=== PATIENT | female | born 1960 | race Caucasian/White ===

== ENCOUNTER 2021-03-01 08:16 | Inpatient (IN) | payer BC, SELFPAY ==
[2021-03-01] VITALS (30 sets, daily range): BP systolic 105–146; BP diastolic 71–97; PULSE 93–123; RESP 20–39; TEMP 36.2–37.4; O2SAT 84–94; BMI 35.9
--- NOTE | ~2021-03-01 | XR_ITS ---
EXAMINATION: XR chest 1V portable DATE: 03/04/2021 05:56 INDICATION: Shortness of breath TECHNIQUE: frontal view of the chest was obtained. COMPARISON: Chest radiograph dated 03/01/2021 FINDINGS: Again seen are increased interstitial predominant opacities in the bilateral mid and lower lung zones . No pleural effusion or pneumothorax. The cardiomediastinal silhouette is normal. Visualized bones and soft tissues are unremarkable. IMPRESSION: 1. Persistent opacities in the bilateral mid and lower lung zones which could represent pneumonia and /or pulmonary edema. Reviewed, dictated and finalized at location A. IMPRESSION: 1. Persistent opacities in the bilateral mid and lower lung zones which could r epresent pneumonia and/or pulmonary edema.
--- NOTE | ~2021-03-01 | XR_ITS ---
EXAMINATION: XR chest 1V portable DATE: 03/01/2021 08:45 INDICATION: Shortness of breath. TECHNIQUE: A single frontal view of the chest was obtained. COMPARISON: Chest 2 views 04/09/2015 FINDINGS: There are airspace opacities in the mid and lower lung zones. No pleural effusion or pneumo thorax. The heart size is normal. IMPRESSION: 1. Airspace opacities in the mid and lower lung zones, consistent with pneumonia. Reviewed, dictated and finalized at location A. IMPRESSION: 1. Airspace opacities in the mid and lower lung zones, consistent with pneumoni a.
--- NOTE | ~2021-03-01 | CT_ITS ---
EXAMINATION: CT chest high resolution wo nd DATE: 03/04/2021 10:45 INDICATION: Pneumonia, hypoxia TECHNIQUE: Computed tomography (CT) of the chest was performed without intravenous contrast. The dose -length product (DLP) was 739.09 mGy-cm. Automated exposure control and iterative reconstruction tech nique were employed. COMPARISON: None FINDINGS: There are widespread groundglass and airspace opacities with a mid and lower lung zone pred ominance. No pleural effusion or pneumothorax is identified. No pathologically enlarged thoracic lymp h nodes are identified. The heart size is normal. Calcified pulmonary nodules and calcified bilateral hilar lymph nodes are consistent with old granulomatous disease. There is moderate thoracic spondylo sis. IMPRESSION: 1. . Diffuse lung disease with a mid and lower lung zone predominance, in a pattern consistent with C OVID 19 pneumonia. Reviewed, dictated and finalized at location A. IMPRESSION: 1. . Diffuse lung disease with a mid and lower lung zone predominance, in a pat tern consistent with COVID 19 pneumonia.
--- NOTE | ~2021-03-01 | XR_ITS ---
EXAMINATION: XR chest 1V portable DATE: 03/06/2021 06:11 INDICATION: COVID TECHNIQUE: frontal view of the chest was obtained. COMPARISON: Chest radiograph and CT dated 03/04/2021 and radiograph dated 03/01/2021 FINDINGS: Lung volumes have decreased. Persistent coarse interstitial and scattered patchy airspace opacities t hroughout both lungs. No pneumothorax or definitive pleural effusion. Calcified right hilar lymph nod es consistent with old granulomatous disease. Heart size is normal. IMPRESSION: 1. Interval decrease in lung volumes with persistent diffuse bilateral lung disease most likely relat ed to pneumonia and specifically COVID pneumonia with differential including pulmonary edema. Reviewed, dictated and finalized at location A. IMPRESSION: 1. Interval decrease in lung volumes with persistent diffuse bilateral lung dis ease most likely related to pneumonia and specifically COVID pneumonia with dif ferential including pulmonary edema.
--- NOTE | 2021-03-01 08:22 | ECG_ITS ---
Measurements Intervals [place] Rate: 93 P: 41 TN: 132 QRS: -17 QRSD: 87 T: 29 QT: 296 QTc: 369 Interpretive Statements SINUS TACHYCARDIA BASELINE ARTIFACT- I, II, III, AVR, AVL, AVF, V1-V6 ABNORMAL ECG Electronically Signed On 03-01-2021 8:35:25 CDT by Nate Kellogg D.O.
[2021-03-01 08:46] LABS: Alveolar/Arterial O2 Gradient 613.2 mmHg; Base Excess ABG -2.8 mEq/l (+/-2.0); Fractional Inspired Oxygen 100 %; HCO3 ABG 22.1 mEq/l (22.0-26.0); Oxygen Content ABG 16.3 %vol (16.0-22.0); Oxyhemoglobin 89.4 % THb (90.0-100.0); PCO2 ABG 38.7 mmHg (35.0-45.0); PO2 ABG 61.1 mmHg (80.0-100.0); PO2 FiO2 Ratio Arterial Blood 0.61 %; pH ABG 7.374 (7.350-7.450)
[2021-03-01 08:47] LABS: Device NON-REBREATHER MASK; Modified Allen's Test Pass; Site Drawn LEFT RADIAL
[2021-03-01 08:58] LABS: Basophils Percent Auto 0.2 % (0.2-1.2); Hemoglobin 12.5 g/dL (12.0-15.0); Immature Granulocyte Absolute 0.07 K/mm3 (0.00-0.031); Immature Granulocyte Percent A 1.3 % (0-0.5); Lymphocytes Absolute Auto 1.18 K/mm3 (0.9-3.2); Lymphocytes Percent Auto 22.5 % (18.3-44.2); Mean Corpuscular HGB Conc 31.3 g/dl (32-36); Mean Corpuscular Hemoglobin 26.1 pg (26-34); Mean Corpuscular Volume 83.5 fl (80-100); Mean Platelet Volume 9.3 fl (7.4-10.4); Monocytes Absolute Auto 0.4 K/mm3 (0.1-0.6); Neutrophils Absolute Auto 3.6 K/mm3 (1.3-6.7); Platelet Count Result 220 k/mm3 (150-375); Red Blood Count 4.79 M/mm3 (4.2-5.4); Red Cell Distribution Width 15.9 % (11.5-14.5); White Blood Count 5.2 K/mm3 (4.5-10.0)
[2021-03-01 09:28] LABS: Prothrombin Time 12.7 Seconds (11.1-14.7)
[2021-03-01 09:31] LABS: D Dimer 2.43 ug/mL (<0.48)
--- NOTE | 2021-03-01 09:31 | ED.GENADULT ---
HPI - General Adult General Chief complaint: Shortness of Breath/Dyspnea Stated complaint: sob, covid + Time Seen by Provider: 03/01/21 08:22 Source: patient and RN notes reviewed Limitations: no limitations History of Present Illness HPI narrative: Patient is 60 years old white female presented to the ED with increasing shortness of breath over the last few days. Tested positive for COVID-19 ,7 days ago, had Covid symptoms few days prior to that. Patient is not vaccinated for COVID-19. Patient is a smoker, history of hypertension, asthma/COPD, and GERD. Related Data Allergies Allergy/AdvReac Type Severity Reaction Status Date / Time iodine Allergy Unknown Hives Verified 03/01/21 08:25 sulfamethizole Allergy Unknown Unknown Verified 03/01/21 08:25 trimethoprim Allergy Unknown Unknown Verified 03/01/21 08:25 Contrast Media Allergy Mild Hives Uncoded 03/01/21 08:25 Review of Systems Review of Systems: CONSTITUTIONAL: Intermittent fever, chills, body aches EYES: Denies visual changes, redness, or discharge. ENT: Denies rhinorrhea, congestion, sore throat, or otalgia. CARDIOVASCULAR: Denies chest pain, palpitations, or edema. RESPIRATORY: Coughing and shortness of breath GASTROINTESTINAL: Denies abdominal pain, nausea, vomiting, or diarrhea. GENITOURINARY: Denies dysuria or hematuria. SKIN: Denies rash or itching. MUSCULOSKELETAL: Denies back pain, joint pain, or myalgia. NEUROLOGIC: Denies headache, numbness PSYCHIATRIC: Denies anxiety or depression. PMFSH Past Medical History Medical History BMI 36.0-36.9,adult BMI 37.0-37.9, adult Family History Family History Mother Hypertension Family history of diabetes mellitus in first degree relative Family history of coronary artery disease Social History Social History Smoking status: Light tobacco smoker Tobacco type: e-cigarettes/vaping Second hand tobacco smoke exposure: No Alcohol intake: never Substance use: never Substance use type: does not use Exam Narrative: General appearance: Well-developed, well-nourished Skin: Normal color Head: Normocephalic, nontraumatic Eyes: Clear conjunctiva ENT: Oropharynx normal, ears normal, nose normal Neck: Supple, nontender Chest and respiratory: Airway patent, no respiratory distress, diminished air entry bilaterally mainly at the bases, few scattered rales. Heart: Regular rate/rhythm Abdomen: Soft, nontender, no organomegaly, quiet bowel sounds Vascular: Normal peripheral pulses, normal capillary refill. Musculoskeletal: Normal range of motion, nontender back Neurologic: Alert and oriented ?3, CHILD CARE ASSOCIATE is normal as tested, no gross motor deficit Course Course Emergency Course: Stable Consultations Consultation #1: dr jara. Date: 03/01/21 Time: 10:41 Vital Signs Vital signs: Vital Signs Temperature 37.4 C 03/01/21 08:18 Pulse Rate 123 H 03/01/21 08:18 Respiratory Rate 23 H 03/01/21 08:18 Blood Pressure 140/76 03/01/21 08:18 Pulse Oximetry 84 L 03/01/21 08:18 Temperature 37.4 C 03/01/21 08:18 Pulse Rate 123 H 03/01/21 08:23 Respiratory Rate 23 H 03/01/21 08:18 Blood Pressure 140/76 03/01/21 08:18 Pulse Oximetry 84 L 03/01/21 08:26 Medical Decision Making [facility] Narrative Medical decision making narrative: Patient presents with Covid infection, pneumonia is my concern. Labs ordered. Work-up showed bilateral Covid pneumonia, hypoxia. High flow oxygen started, admission to [facility], Elevated D-dimer, patient is allergic to IV contrast, Lovenox given D
[2021-03-01 10:01] LABS: Alanine Aminotransferase 20 U/L (4-35); Albumin Level 3.6 g/dL (3.5-5.1); Alkaline Phosphatase 70 U/L (38-126); Anion Gap 9 mmol/L (8-16); Aspartate Amino Transferase 65 U/L (14-36); Bilirubin,Total 0.2 mg/dL (0.2-1.3); Blood Urea Nitrogen 9 mg/dL (7-17); Calcium 8.1 mg/dL (8.4-10.2); Carbon Dioxide 23 mmol/L (22-30); Chloride 101 mmol/L (98-107); Estimated CRCL calculation 88 ml/min; Estimated Glomerular Filt Rate > 60; Glucose 159 mg/dL (65-110); Potassium 4.1 mmol/L (3.4-5.0); Sodium 133 mmol/L (137-145)
[2021-03-01] MEDS: REMDESIVIR 200 MG/NS 250 ML 200 MG/250 ML BAG 250 MG IVPB (10:13)
[2021-03-01 10:17] LABS: NT Pro B Type Natriuretic Pept 184 pg/mL (5-100); Troponin I < 0.012 ng/mL (0.000-0.034)
[2021-03-01] MEDS: ENOXAPARIN 100 MG/ML SYRINGE 90 MG SUB-Q ×2 (10:28→20:27)
[2021-03-01 11:29] LABS: Alveolar/Arterial O2 Gradient 589.1 mmHg; Device BIPAP; Fractional Inspired Oxygen 100 %; HCO3 ABG 18.5 mEq/l (22.0-26.0); Modified Allen's Test Pass; Oxygen Content ABG 17.7 %vol (16.0-22.0); Oxygen Saturation ABG 97.3 % (95.0-100.0); Oxyhemoglobin 95.8 % THb (90.0-100.0); PCO2 ABG 30.3 mmHg (35.0-45.0); PO2 ABG 93.6 mmHg (80.0-100.0); PO2 FiO2 Ratio Arterial Blood 0.94 %; Site Drawn LEFT RADIAL; Total Hemoglobin 13.1 g/dL (12.0-18.0); pH ABG 7.404 (7.350-7.450)
[2021-03-01 11:30] LABS: Expiratory Pressure 8 cmH2O; Inspiratory Pressure 18 cmH2O
[2021-03-01 11:35] LABS: Platelet Estimate Adequate (Adequate)
--- NOTE | 2021-03-01 12:37 | PM.IMHP ---
H&P: HPI History of Present Illness Date/Time: 03/01/21 12:37 this is a 60-year-old female patient who has a history of asthma and hypertension. The patient stated that she tested positive for COVID-19 approximately 5 days ago and had been sick for about a week prior to that. The patient stated that she has been more short of breath over the last 2 days. She has been very weak and fatigued. She denies any fever chills or body aches. His she states that she has had an upset stomach and diarrhea as well. She has not been vaccinated for COVID-19. Her that she lives with has also tested positive for COVID-19. The patient stated that she has completed a course of azithromycin. Her oxygen level was listed as 84%. She was placed on high-flow oxygen and still remained hypoxic. The patient was started on a BiPAP 18/8 with 100% oxygen at a rate of 10. Her oxygen level is now in the 94-95 percentile. On her ABGs her pH is normal CO2 was low and bicarb is low. The patient was given subcu Lovenox, Decadron, and REMdesivir. The patient is being admitted to inpatient services on the date of service of 03/01/2021. Chief Complaint: Shortness of breath Review of Systems Review of Systems: All systems reviewed & are unremarkable except as noted in HPI and below Constitutional: Constitutional: Reports as per HPI and Reports no additional constitutional complaints Eyes: Eyes: Reports as per HPI and Reports no additional eye complaints ENT: Reports system reviewed and no additional complaints, except as documented and Reports Normal hearing present Cardiovascular: Cardiovascular: Reports no additional cardiovascular complaints Respiratory: Respiratory: Reports no additional respiratory complaints and Reports no additional respiratory complaints Gastrointestinal: Gastrointestinal: Reports as per HPI and Reports no additional gastrointestinal complaints Musculoskeletal: Musculoskeletal: Reports no additional musculoskeletal complaints Integumentary/Breasts: Skin/Breast: Reports system reviewed and no additional complaints, except as docu and Reports as per HPI Neurologic: Reports system reviewed and no additional complaints, except as documented, Reports as per HPI and Reports Normal hearing present Psychiatric: Psychiatric: Reports no additional psychiatric complaints and Reports as per HPI Endocrine: Endocrine: Reports no additional endocrine complaints Hematologic/Lymphatic: Hematologic/Lymphatic: Reports no additional hematologic/lymphatic complaints Allergic/Immunologic: Allergic/Immunologic: Reports no additional allergic/immunologic complaints PMFSH Past Medical History Medical History (Updated 03/01/21 @ 12:44 by Carlie Medina NP) Asthma BMI 36.0-36.9,adult BMI 37.0-37.9, adult Chronic GERD Essential hypertension Surgical History Surgical History (Updated 03/01/21 @ 12:44 by Carlie Medina NP) History of appendectomy History of section, classical Family History Family History Mother Hypertension Family history of diabetes mellitus in first degree relative Family history of coronary artery disease Social History Social History (Updated 03/01/21 @ 12:45 by Carlie Medina NP) Social History: The patient stated that she quit using tobacco 9 years ago. The patient is a homemaker. She is and lives with her who is the durable power prosecuting attorney for healthcare. The patient desires to be a full code. The patient has 4 children. She denies any alcohol marijuana or illicit drugs. Smoking status: Former smoker Tobacco type: e-cigarettes/vaping Second hand tobacco smoke exposure: No Alcohol intake: never Substance use: never Substance use type: does not use Meds Home Medications and Allergies Home Medications Medication Instructions Recorded Confirmed Type cetirizine 10 mg tablet 10 mg PO DAILY #30 table
--- NOTE | 2021-03-01 12:44 | PC.NURSE ---
Patient is on BiPap settings: Ipap:18 Epap:8 FiO2: 100 Backup rate:10
[2021-03-01] MEDS: ALBUTEROL SULFATE NEB 2.5 MG/0.5 ML INH INHALATION (13:16)
[2021-03-01] MEDS: IPRATROPIUM BR 0.02% INH SOLN 0.5 MG/2.5 ML VIAL INHALATION (13:16)
[2021-03-01 15:16] LABS: Alanine Aminotransferase 20 U/L (4-35); Estimated CRCL calculation 88 ml/min; Estimated Glomerular Filt Rate > 60
[2021-03-01 15:17] LABS: Prothrombin Time 12.6 Seconds (11.1-14.7)
--- NOTE | 2021-03-01 18:51 | PC.NURSE ---
This patient, Aleksandra Gabriel, was admitted to IMU Room 207-01. Patient/family oriented to hospital policies and general routines including ID bracelet, bed and alarms, visiting hours, pain management, procedures, bathroom and other care routines, personal items, smoking policy, room service/diet, and visiting hours. Information on how to activate the Rapid Response Team has been discussed. Patient/Family are encouraged to report perceived risks to care and to ask questions if they do not understand what they are told or what they should do.
[2021-03-01] MEDS: PANTOPRAZOLE SODIUM IV 40 MG VIAL IV PUSH (21:03)
[2021-03-01] MEDS: IPRATROPIUM BR 0.02% INH SOLN 0.5 MG/2.5 ML VIAL 1 MG INHALATION (21:04)
[2021-03-01] MEDS: ALBUTEROL SULFATE NEB 2.5 MG/3 ML INH 1.25 MG INHALATION (21:04)
[2021-03-02] VITALS (22 sets, daily range): BP systolic 114–142; BP diastolic 72–90; PULSE 88–127; RESP 17–35; TEMP 35.8–36.9; O2SAT 87–99
--- NOTE | 2021-03-02 01:22 | PM.EVENT ---
Event Note Event Note Event Note: 03/02/2021 at 1:20 a.m. I was called by nursing staff as patient was having increasing hypoxia on BiPAP 06/02 with 100% FiO2. The patient's oxygen saturations were staying persistently at 85%. The patient had just been admitted for COVID pneumonia 03/01/2021. The patient is are receiving treatment with Decadron and Remdesivir. She is also receiving albuterol and Atrovent. I went to evaluate the patient. She was tachypneic with a respiratory rate of 23 but in no overt distress. She had a BiPAP in place. She had frequent leak from BiPAP as her chin does not fit within the BiPAP mask. The patient was adamant that she did not want to be intubated. Subsequently I change the patient from BiPAP to CPAP with a PEEP of 14. This improved her pulse ox to 91%. The patient stated that she understood that she would if her oxygen saturations continue to decline and she was not intubated. She had evidently been intubated in the past for a severe pneumonia and chooses to never be intubated again. Lower having this discussion the patient asked me if it would be possible for her to be discharged on hospice at 6:00 a.m. on the . I explained to the patient that we could not arrange hospice for palliative care services quite that quickly. Has 0 told her that it was probably premature to a jump to hospice without trying other methods of respiratory support. Unfortunately we do not have any Airvo was available for use at this time. 30 minute spent in critical care activities This case had a high probability of a clinically significant, sudden, or life threatening deterioration of this patient's condition which required my full and direct attention, intervention and personal management.
[2021-03-02] MEDS: IPRATROPIUM BR 0.02% INH SOLN 0.5 MG/2.5 ML VIAL 1 MG INHALATION ×4 (01:26→20:34)
[2021-03-02] MEDS: ALBUTEROL SULFATE NEB 2.5 MG/3 ML INH 1.25 MG INHALATION ×4 (01:26→20:34)
[2021-03-02 05:29] LABS: Hematocrit 38.6 % (37.0-47.0); Hemoglobin 12.2 g/dL (12.0-15.0); Immature Granulocyte Absolute 0.14 K/mm3 (0.00-0.031); Immature Granulocyte Percent A 2.7 % (0-0.5); Lymphocytes Absolute Auto 1.08 K/mm3 (0.9-3.2); Lymphocytes Percent Auto 20.7 % (18.3-44.2); Mean Corpuscular HGB Conc 31.6 g/dl (32-36); Mean Corpuscular Hemoglobin 26.4 pg (26-34); Mean Corpuscular Volume 83.5 fl (80-100); Mean Platelet Volume 8.9 fl (7.4-10.4); Monocytes Absolute Auto 0.5 K/mm3 (0.1-0.6); Monocytes Percent Auto 10.1 % (2.6-8.5); Neutrophils Absolute Auto 3.5 K/mm3 (1.3-6.7); Neutrophils Percent Auto 66.5 % (45.5-73.1); Platelet Count Result 262 k/mm3 (150-375); Red Blood Count 4.62 M/mm3 (4.2-5.4); Red Cell Distribution Width 15.8 % (11.5-14.5); White Blood Count 5.2 K/mm3 (4.5-10.0)
[2021-03-02 05:46] LABS: Alanine Aminotransferase 21 U/L (4-35); Albumin Level 3.4 g/dL (3.5-5.1); Alkaline Phosphatase 69 U/L (38-126); Anion Gap 9 mmol/L (8-16); Aspartate Amino Transferase 57 U/L (14-36); Bilirubin,Total 0.3 mg/dL (0.2-1.3); Blood Urea Nitrogen 18 mg/dL (7-17); Calcium 8.3 mg/dL (8.4-10.2); Carbon Dioxide 25 mmol/L (22-30); Chloride 105 mmol/L (98-107); Estimated CRCL calculation 86 ml/min; Estimated Glomerular Filt Rate > 60; Glucose 207 mg/dL (65-110); Lactate Dehydrogenase 1223 U/L (313-618); Magnesium 1.8 mg/dL (1.6-2.3); Potassium 4.1 mmol/L (3.4-5.0); Sodium 139 mmol/L (137-145)
[2021-03-02 05:47] LABS: Lactic Acid Reflex 0.9 mmol/L (0.7-2.1)
[2021-03-02 05:51] LABS: Prothrombin Time 12.7 Seconds (11.1-14.7)
[2021-03-02 06:30] LABS: Thyroid Stimulating Hormone Reflex 0.227 uIU/mL (0.465-4.68)
[2021-03-02] MEDS: ENOXAPARIN 100 MG/ML SYRINGE 90 MG SUB-Q ×2 (08:49→20:26)
[2021-03-02] MEDS: MONTELUKAST SODIUM 10 MG TABLET PO (08:50)
[2021-03-02] MEDS: lisinopriL 20 MG TABLET PO (08:50)
[2021-03-02] MEDS: amLODIPine BESYLATE 5 MG TABLET PO (08:50)
[2021-03-02] MEDS: PANTOPRAZOLE SODIUM IV 40 MG VIAL IV PUSH ×2 (08:51→17:56)
[2021-03-02 08:59] LABS: Free T4 Free Thyroxine Reflex 0.94 ng/dL (0.78-2.19)
[2021-03-02] MEDS: REMDESIVIR 100 MG/NS 250 ML 100 MG/250 ML BAG 250 MG IVPB (09:03)
--- NOTE | 2021-03-02 09:52 | PM.IMPN ---
Progress Note: A&P Assessment and Plan (1) Acute respiratory failure with hypoxia: Code(s): J96.01 - Acute respiratory failure with hypoxia Status: Acute Assessment and Plan: - Currently on CPAP at 100% FiO2 to maintain saturations. Will continue. - Continue Decadron. - Continue Remdesivir - Duonebs and Albuterol. - DNI - Monitor VS and Labs. (2) Pneumonia due to 2019 novel coronavirus: Code(s): U07.1 - COVID-19; J12.82 - Pneumonia due to coronavirus disease 2019 Status: Acute Assessment and Plan: - Continue Non-Invasive Oxygenation as per pt's wishes. - Has already completed Abx therapy. (Azithromycin) - Continue Remdesivir. - Continue Decadron - Continue Albuterol and Duoneb (3) Essential hypertension: Code(s): I10 - Essential (primary) hypertension Status: Chronic Assessment and Plan: - Continue PRN Hydralazine as pt. is not currently stable enought to tolerate anything by mouth. (4) Asthma: Qualifiers: Asthma complication type: unspecified Asthma persistence: unspecified Asthma severity: unspecified severity Qualified Code(s): J45.909 - Unspecified asthma, uncomplicated Code(s): J45.909 - Unspecified asthma, uncomplicated Status: Chronic Assessment and Plan: - Continue Duoneb and Albuterol - Continue Decadron - Continue supplemental Oxygenation as needed. - Continue Montelukast. (5) Chronic GERD: Code(s): K21.9 - Gastro-esophageal reflux disease without esophagitis Status: Chronic Assessment and Plan: - Continue IV Protonix (6) DVT prophylaxis: Onset Date: ~02/2021 Code(s): Z29.9 - Encounter for prophylactic measures, unspecified Status: Acute Assessment and Plan: - Lovenox SC. Q24 hours for DVT prophylaxis. Time Spent With Patient Time with patient: 15 - 25 minutes Subjective Date/time seen: 03/02/21 09:52 Pt. states she believes that she has some improvement in her breathing today, although the RN reports that on CPAP currently with a pressure of 18/8 at 100% FiO2, she cannot tolerate to even remove her mask to eat. Pivoting to the bedside commode drops her saturations to the upper 70s. She has no complaints of Chest pain, does still complain of a cough and some dyspnea, and she remains adamant that should she further decompensate that she does not want to be intubated ever again under any circumstances. She is receiving Albuterol, Atrovent and Dexamethasone Currently. She is also on Remdesivir. Due to her degree of dyspnea, the [employer] Grade Teacher was called to the bedside to evaluate patient last evening and she was placed on CPAP at that time as she was not tolerating BiPap or maintaining her saturations on BiPap. Pt. does not want Plasma treatment and she has instead shown interest in possibly moving towards palliative care if she does not improve. Review of Systems Review of Systems: All systems reviewed & are unremarkable except as noted in HPI and below Exam Const: General: comfortable and no acute distress (Pt. requiring CPAP to maintain acceptable saturations at this time.) Neck: Neck: supple Other: No accessory muscle use in the neck is appreciated to aid with breathing. Resp: Auscultation: crackles, rhonchi, wheezes and diminished lung sounds Other: Diffusely altered breath sounds. Cardio: Rate: regular rate Rhythm: regular rhythm Heart sounds: no murmurs and no rubs GI: GI Palp: Yes Soft to palpation and No Tenderness to palpation present (GI) Auscultation: normal bowel sounds Skin: General skin exam: normal color, no rashes or lesions noted and no erythema Lesions: no lesions noted Wounds: no wounds Neuro: General: gait normal Cognition (Neuro): normal cognition Speech: normal speech Extrem: General: normal to inspection Psych: Mental Status: mental status grossly normal Affect: normal affect Thought content: Yes Normal thought content present Objective Data V
[2021-03-02 10:11] LABS: Total Triiodothyronine (T3) 0.87 NG/ML (0.97-1.69)
[2021-03-02 19:29] LABS: SARS-CoV-2 RNA PCR Positive
[2021-03-02] MEDS: CYCLOBENZAPRINE HCL 10 MG TABLET PO (20:26)
[2021-03-03] VITALS (28 sets, daily range): BP systolic 114–138; BP diastolic 70–83; PULSE 74–117; RESP 14–28; TEMP 36–36.8; O2SAT 83–96
[2021-03-03] MEDS: ALBUTEROL SULFATE NEB 2.5 MG/3 ML INH 1.25 MG INHALATION ×4 (03:20→22:44)
[2021-03-03] MEDS: IPRATROPIUM BR 0.02% INH SOLN 0.5 MG/2.5 ML VIAL 1 MG INHALATION ×4 (03:21→22:44)
[2021-03-03 05:17] LABS: Basophils Percent Auto 0.4 % (0.2-1.2); Hemoglobin 12.7 g/dL (12.0-15.0); Immature Granulocyte Absolute 0.22 K/mm3 (0.00-0.031); Immature Granulocyte Percent A 2.8 % (0-0.5); Lymphocytes Absolute Auto 1.26 K/mm3 (0.9-3.2); Lymphocytes Percent Auto 15.8 % (18.3-44.2); Mean Corpuscular HGB Conc 30.2 g/dl (32-36); Mean Corpuscular Hemoglobin 26.4 pg (26-34); Mean Corpuscular Volume 87.3 fl (80-100); Mean Platelet Volume 8.8 fl (7.4-10.4); Monocytes Absolute Auto 1.1 K/mm3 (0.1-0.6); Monocytes Percent Auto 13.4 % (2.6-8.5); Neutrophils Absolute Auto 5.4 K/mm3 (1.3-6.7); Neutrophils Percent Auto 67.6 % (45.5-73.1); Platelet Count Result 342 k/mm3 (150-375); Red Blood Count 4.81 M/mm3 (4.2-5.4); Red Cell Distribution Width 16.1 % (11.5-14.5)
[2021-03-03 05:31] LABS: INR 1.1
[2021-03-03 05:52] LABS: Alanine Aminotransferase 23 U/L (4-35); Albumin Level 3.7 g/dL (3.5-5.1); Alkaline Phosphatase 64 U/L (38-126); Anion Gap 12 mmol/L (8-16); Aspartate Amino Transferase 58 U/L (14-36); Bilirubin,Total 0.6 mg/dL (0.2-1.3); Blood Urea Nitrogen 27 mg/dL (7-17); CRP 4.1 mg/dL (<1.0); Calcium 8.5 mg/dL (8.4-10.2); Carbon Dioxide 25 mmol/L (22-30); Chloride 106 mmol/L (98-107); Estimated CRCL calculation 76 ml/min; Estimated Glomerular Filt Rate > 60; Glucose 215 mg/dL (65-110); Potassium 4.2 mmol/L (3.4-5.0); Sodium 143 mmol/L (137-145)
[2021-03-03] MEDS: lisinopriL 20 MG TABLET PO (08:17)
[2021-03-03] MEDS: MONTELUKAST SODIUM 10 MG TABLET PO (08:17)
[2021-03-03] MEDS: amLODIPine BESYLATE 5 MG TABLET PO (08:17)
[2021-03-03] MEDS: ENOXAPARIN 100 MG/ML SYRINGE 90 MG SUB-Q ×2 (08:18→20:08)
[2021-03-03] MEDS: PANTOPRAZOLE SODIUM IV 40 MG VIAL IV PUSH ×2 (08:18→16:17)
[2021-03-03] MEDS: REMDESIVIR 100 MG/NS 250 ML 100 MG/250 ML BAG 250 MG IVPB (10:55)
--- NOTE | 2021-03-03 14:27 | PM.IMPN ---
Progress Note: A&P Assessment and Plan (1) Acute respiratory failure with hypoxia: Code(s): J96.01 - Acute respiratory failure with hypoxia Status: Acute Assessment and Plan: - Currently on CPAP at 100% FiO2 to maintain saturations. Will continue. - Continue Decadron. - Continue Remdesivir - Duonebs and Albuterol. - DNI - Monitor VS and Labs. CRP 6 down to 4.1 today and improving CTA not done as she has iodine allergy She might not be able to tolerate a V/Q scan Will increase Decadron to 10 mg IV daily Prone positioning intermittently will be attempted to improve oxygenation Will only gets high-resolution CT scan to evaluate her pneumonia Will also check echo (2) Pneumonia due to 2019 novel coronavirus: Code(s): U07.1 - COVID-19; J12.82 - Pneumonia due to coronavirus disease 2019 Status: Acute Assessment and Plan: - Continue Non-Invasive Oxygenation as per pt's wishes. - Has already completed Abx therapy. (Azithromycin) - Continue Remdesivir. - Continue Decadron - Continue Albuterol and Duoneb Procalcitonin is pending WBC count is normal suspect COVID related only (3) Essential hypertension: Code(s): I10 - Essential (primary) hypertension Status: Chronic Assessment and Plan: - Continue PRN Hydralazine as pt. is not currently stable enought to tolerate anything by mouth. (4) Asthma: Qualifiers: Asthma severity: unspecified severity Asthma persistence: unspecified Asthma complication type: unspecified Qualified Code(s): J45.909 - Unspecified asthma, uncomplicated Code(s): J45.909 - Unspecified asthma, uncomplicated Status: Chronic Assessment and Plan: - Continue Duoneb and Albuterol - Continue Decadron - Continue supplemental Oxygenation as needed. - Continue Montelukast. (5) Chronic GERD: Code(s): K21.9 - Gastro-esophageal reflux disease without esophagitis Status: Chronic Assessment and Plan: - Continue IV Protonix (6) DVT prophylaxis: Onset Date: ~02/2021 Code(s): Z29.9 - Encounter for prophylactic measures, unspecified Status: Acute Assessment and Plan: - Lovenox SC. Full therapeutic dose currently Subjective Date/time seen: 03/03/21 14:27 Interval history: Respiratory status unchanged he remains on CPAP 100% FiO2 with Airvo she desaturated is down to mid 80s denies any overt shortness of breath does not want to be intubated no fever chills Review of Systems Review of Systems: All systems reviewed & are unremarkable except as noted in HPI and below Exam Narrative: Const: General: comfortable and no acute distress the CPAP on contain oxygen saturation Neck: Neck: supple Other: No accessory muscle use in the neck is appreciated to aid with breathing. Resp: Auscultation: Diminished breath sounds bilaterally, no respiratory distress Cardio: Rate: regular rate Rhythm: regular rhythm Heart sounds: no murmurs and no rubs GI: Soft, nondistended, nontender, no organomegaly Skin: Normal color no rashes Neuro: Alert and oriented x3, no focal neurological deficit Extrem: No edema cyanosis or clubbing Psych: Mental Status: mental status grossly normal Affect: normal affect Thought content: Yes Normal thought content present Objective Data Vital Signs Vital Signs: Vital Signs - 24 hr 03/02/21 16:00 03/02/21 17:00 03/02/21 18:00 Temperature Pulse Rate 110 H 109 H 103 H Respiratory Rate 20 Blood Pressure 125/80 Pulse Oximetry 90 03/02/21 20:00 03/02/21 20:35 03/02/21 20:45 Temperature 98.2 F Pulse Rate 104 H 109 H 127 H Respiratory Rate 24 H 20 26 H Blood Pressure 142/90 H Pulse Oximetry 99 03/02/21 20:48 03/02/21 22:00 03/02/21 23:11 Temperature 98.5 F Pulse Rate 109 H 110 H 109 H Respiratory Rate 26 H 23 H Blood Pressure 114/75 Pulse Oximetry 94 90 03/03/21 00:00 03/03/21 00:10 03/03/21 02:00 Temperature Pulse
[2021-03-03] MEDS: BARICITINIB 2 MG TABLET 4 MG BY MOUTH (16:16)
[2021-03-03] MEDS: DEXAMETHASONE SOD PHOS INJ 4 MG/ML VIAL IV PUSH (16:17)
[2021-03-03] MEDS: ACETAMINOPHEN 325 MG TABLET 650 MG PO (20:47)
--- NOTE | 2021-03-03 22:44 | PCRCNOTE ---
Pt placed on CPAP 14 for low saturation, pt was max out on optiflow. Pt is resting CPAP 14, RR 16, SP02 96%.
[2021-03-04] VITALS (31 sets, daily range): BP systolic 113–142; BP diastolic 75–82; PULSE 73–115; RESP 17–30; TEMP 36.6–36.9; O2SAT 88–97
--- NOTE | 2021-03-04 | ECHO_ITS ---
Patient Info Name: Aleksandra Gabriel Age: 60 years : 1960 Gender: Female Ht: 61 in Wt: 192 lbs BSA: 1.98 m2 HR: 90 bpm BP: 135 / 77 mmHg Exam Date: 03/04/2021 12:07 PM Exam Location: [facility] Patient Status: Inpatient Admit Date: 03/01/2021 Staff Ordering Physician: Oleg Live MD Voip Network Engineer: Nathan Workman, FREDDY, RT Attending Provider: Rahel Summers MD Exam Type: CA echo doppler color flow Study Info Indications J96.90 - Respiratory failure, unspecified, unspecified whether with hypoxia or hypercapnia Complete two-dimensional, color flow and Doppler transthoracic echocardiogram is performed. Strain analysis performed. Summary 1. Complete two-dimensional, color flow and Doppler transthoracic echocardiogram is performed. 2. Left ventricular chamber dimension is normal. 3. Left ventricular systolic function is normal, estimated at 60-65%. 4. The left ventricular diastolic function is grade I diastolic dysfunction. 5. E/e' 7 is not elevated. 6. Global longitudinal strain is normal at -18.3%. 7. Dilated inferior vena cava with >50% collapse upon inspiration consistent with elevated right atrial pressure, 10 mmHg. Left Ventricle E/e' 7 is not elevated. Global longitudinal strain is normal at -18.3%. Left ventricular chamber dimension is normal. Left ventricular systolic function is normal, estimated at 60-65%. The left ventricular diastolic function is grade I diastolic dysfunction. Right Ventricle Right ventricular systolic function is normal and with normal TAPSE 2.6 cm. Right ventricular chamber dimension is normal. Left Atria Left atrial chamber dimension is normal. Right Atria Right atrial chamber dimension is normal. Aortic Valve The aortic valve is trileaflet. There is no aortic valve stenosis. There is no aortic valve regurgitation. Pulmonic Valve There is no pulmonic regurgitation. Mitral Valve There is no mitral valve stenosis. There is no mitral valve regurgitation. Tricuspid Valve There is no tricuspid valve regurgitation. Pericardium/Pleural There is no pericardial effusion. Inferior Vena Cava Dilated inferior vena cava with >50% collapse upon inspiration consistent with elevated right atrial pressure, 10 mmHg. Aorta The aortic root size at the sinus of Valsalva is normal. Left Ventricular Outflow Tract Name Value Normal LVOT 2D LVOT Diameter 2.0 cm LVOT Doppler LVOT Peak Gradient 4 mmHg LVOT Mean Gradient 2 mmHg LVOT VTI 19 cm LVOT VTI/AV VTI Ratio 0.7 LVOT Stroke Volume 62 ml LVOT CO 6.4 l/min LVOT CI 3.2 l/min/m2 Mitral Valve Name Value Normal MV Doppler MV Peak Grad
[2021-03-04] MEDS: ALBUTEROL SULFATE NEB 2.5 MG/3 ML INH 1.25 MG INHALATION ×4 (02:59→21:18)
[2021-03-04 05:36] LABS: Basophils Percent Auto 0.5 % (0.2-1.2); Hematocrit 36.3 % (37.0-47.0); Hemoglobin 11.4 g/dL (12.0-15.0); Immature Granulocyte Absolute 0.28 K/mm3 (0.00-0.031); Immature Granulocyte Percent A 4.6 % (0-0.5); Lymphocytes Percent Auto 22.8 % (18.3-44.2); Mean Corpuscular HGB Conc 31.4 g/dl (32-36); Mean Corpuscular Hemoglobin 26.3 pg (26-34); Mean Corpuscular Volume 83.8 fl (80-100); Mean Platelet Volume 8.6 fl (7.4-10.4); Monocytes Absolute Auto 0.8 K/mm3 (0.1-0.6); Monocytes Percent Auto 13.4 % (2.6-8.5); Neutrophils Absolute Auto 3.6 K/mm3 (1.3-6.7); Neutrophils Percent Auto 58.7 % (45.5-73.1); Platelet Count Result 378 k/mm3 (150-375); Red Blood Count 4.33 M/mm3 (4.2-5.4); Red Cell Distribution Width 15.9 % (11.5-14.5); White Blood Count 6.1 K/mm3 (4.5-10.0)
[2021-03-04 05:43] LABS: INR 1.2; Prothrombin Time 14.6 Seconds (11.1-14.7)
[2021-03-04 05:53] LABS: Alanine Aminotransferase 21 U/L (4-35); Albumin Level 3.2 g/dL (3.5-5.1); Alkaline Phosphatase 72 U/L (38-126); Anion Gap 7 mmol/L (8-16); Aspartate Amino Transferase 38 U/L (14-36); Bilirubin,Total 0.4 mg/dL (0.2-1.3); Blood Urea Nitrogen 26 mg/dL (7-17); CRP 2.1 mg/dL (<1.0); Calcium 8.6 mg/dL (8.4-10.2); Carbon Dioxide 28 mmol/L (22-30); Chloride 107 mmol/L (98-107); Estimated CRCL calculation 76 ml/min; Estimated Glomerular Filt Rate > 60; Glucose 212 mg/dL (65-110); Lactate Dehydrogenase 1057 U/L (313-618); Sodium 142 mmol/L (137-145)
[2021-03-04 05:56] LABS: Magnesium 2.6 mg/dL (1.6-2.3); Phosphorus 4.6 mg/dL (2.5-4.5)
[2021-03-04 07:37] LABS: Microcytosis 1+ (NORMAL); Platelet Estimate Adequate (Adequate)
[2021-03-04 07:38] LABS: Anisocytosis 1+ (NORMAL); Hypochromasia 1+ (NORMAL)
[2021-03-04] MEDS: ENOXAPARIN 100 MG/ML SYRINGE 90 MG SUB-Q ×2 (08:30→20:53)
[2021-03-04] MEDS: BARICITINIB 2 MG TABLET 4 MG BY MOUTH (08:30)
[2021-03-04] MEDS: lisinopriL 20 MG TABLET PO (08:31)
[2021-03-04] MEDS: amLODIPine BESYLATE 5 MG TABLET PO (08:31)
[2021-03-04] MEDS: MONTELUKAST SODIUM 10 MG TABLET PO (08:31)
[2021-03-04] MEDS: PANTOPRAZOLE SODIUM IV 40 MG VIAL IV PUSH ×2 (08:31→18:26)
[2021-03-04] MEDS: IPRATROPIUM BR 0.02% INH SOLN 0.5 MG/2.5 ML VIAL 1 MG INHALATION ×3 (08:58→21:18)
[2021-03-04 09:31] LABS: Procalcitonin 0.1 ng/mL
[2021-03-04] MEDS: REMDESIVIR 100 MG/NS 250 ML 100 MG/250 ML BAG 250 MG IVPB (09:39)
[2021-03-04 10:07] LABS: NT Pro B Type Natriuretic Pept 154 pg/mL (5-100)
--- NOTE | 2021-03-04 12:26 | PM.IMPN ---
Progress Note: A&P Assessment and Plan (1) Acute respiratory failure with hypoxia: Code(s): J96.01 - Acute respiratory failure with hypoxia Status: Acute Assessment and Plan: - Currently on CPAP at 100% FiO2 to maintain saturations. Will continue. - Continue Decadron. - Continue Remdesivir - Duonebs and Albuterol. - DNI - Monitor VS and Labs. CRP 6 down to 4.1 today and improving CTA not done as she has iodine allergy She might not be able to tolerate a V/Q scan Will increase Decadron to 10 mg IV daily Prone positioning intermittently will be attempted to improve oxygenation high-resolution CT scan reviewed Chest x-ray reviewed Will give a dose of Lasix today 40 mg IV x1 Added baricitinib (2) Pneumonia due to 2019 novel coronavirus: Code(s): U07.1 - COVID-19; J12.82 - Pneumonia due to coronavirus disease 2019 Status: Acute Assessment and Plan: - Continue Non-Invasive Oxygenation as per pt's wishes. - Has already completed Abx therapy. (Azithromycin) - Continue Remdesivir. - Continue Decadron - Continue Albuterol and Duoneb Procalcitonin is negative WBC count is normal suspect COVID related only (3) Essential hypertension: Code(s): I10 - Essential (primary) hypertension Status: Chronic Assessment and Plan: - Continue PRN Hydralazine as pt. is not currently stable enought to tolerate anything by mouth. (4) Asthma: Qualifiers: Asthma severity: unspecified severity Asthma persistence: unspecified Asthma complication type: unspecified Qualified Code(s): J45.909 - Unspecified asthma, uncomplicated Code(s): J45.909 - Unspecified asthma, uncomplicated Status: Chronic Assessment and Plan: - Continue Duoneb and Albuterol - Continue Decadron - Continue supplemental Oxygenation as needed. - Continue Montelukast. (5) Chronic GERD: Code(s): K21.9 - Gastro-esophageal reflux disease without esophagitis Status: Chronic Assessment and Plan: - Continue IV Protonix (6) DVT prophylaxis: Onset Date: ~02/2021 Code(s): Z29.9 - Encounter for prophylactic measures, unspecified Status: Acute Assessment and Plan: - Lovenox SC. Full therapeutic dose currently Subjective Date/time seen: 03/04/21 12:26 Interval history: was placed on Airvo last evening has been doing okay she is on 40 liters/minute at 90% FiO2. Feels okay. No fever minimal cough no leg swelling Review of Systems Review of Systems: All systems reviewed & are unremarkable except as noted in HPI and below Exam Narrative: Const: General: comfortable and no acute distress on airvo Neck: Neck: supple Other: No accessory muscle use in the neck is appreciated to aid with breathing. Resp: Auscultation: Diminished breath sounds bilaterally, no respiratory distress Cardio: Rate: regular rate Rhythm: regular rhythm Heart sounds: no murmurs and no rubs GI: Soft, nondistended, nontender, no organomegaly Skin: Normal color no rashes Neuro: Alert and oriented x3, no focal neurological deficit Extrem: No edema cyanosis or clubbing Psych: Mental Status: mental status grossly normal Affect: normal affect Thought content: Yes Normal thought content present Objective Data Vital Signs Vital Signs: Vital Signs - 24 hr 03/03/21 14:00 03/03/21 15:00 03/03/21 15:02 Temperature Pulse Rate 93 98 104 H Respiratory Rate 22 H 24 H Blood Pressure Pulse Oximetry 92 03/03/21 16:00 03/03/21 17:34 03/03/21 18:00 Temperature 97.9 F Pulse Rate 110 H 98 117 H Respiratory Rate 28 H Blood Pressure 121/74 Pulse Oximetry 91 91 03/03/21 20:00 03/03/21 20:05 03/03/21 20:45 Temperature 98.2 F Pulse Rate 103 H 74 Respiratory Rate 26 H 18 Blood Pressure 121/74 Pulse Oximetry 90 90 03/03/21 20:50 03/03/21 21:58 03/03/21 22:09 Temperature Pulse Rate 95 Respiratory Rate Blood Pressure Pulse
[2021-03-04] MEDS: FUROSEMIDE INJ 40 MG/4 ML VIAL IV PUSH (12:40)
[2021-03-04] MEDS: LORazepam INJ (*CRX) 2 MG/ML VIAL 0.5 MG IV PUSH ×2 (14:45→20:53)
[2021-03-04] MEDS: CYCLOBENZAPRINE HCL 10 MG TABLET PO (20:53)
[2021-03-05] VITALS (20 sets, daily range): BP systolic 126–152; BP diastolic 83–96; PULSE 65–105; RESP 16–36; TEMP 36.5–37.1; O2SAT 84–90
[2021-03-05] MEDS: IPRATROPIUM BR 0.02% INH SOLN 0.5 MG/2.5 ML VIAL 1 MG INHALATION ×4 (02:43→22:29)
[2021-03-05] MEDS: ALBUTEROL SULFATE NEB 2.5 MG/3 ML INH 1.25 MG INHALATION ×4 (02:43→22:28)
[2021-03-05] MEDS: MONTELUKAST SODIUM 10 MG TABLET PO (07:48)
[2021-03-05] MEDS: amLODIPine BESYLATE 5 MG TABLET PO (07:48)
[2021-03-05] MEDS: lisinopriL 20 MG TABLET PO (07:48)
[2021-03-05] MEDS: BARICITINIB 2 MG TABLET 4 MG BY MOUTH (07:48)
[2021-03-05] MEDS: ENOXAPARIN 100 MG/ML SYRINGE 90 MG SUB-Q (07:49)
[2021-03-05] MEDS: PANTOPRAZOLE SODIUM IV 40 MG VIAL IV PUSH ×2 (07:49→17:28)
[2021-03-05] MEDS: LORazepam INJ (*CRX) 2 MG/ML VIAL 0.5 MG IV PUSH ×3 (08:11→21:08)
[2021-03-05 08:58] LABS: Basophils Percent Auto 0.3 % (0.2-1.2); Hematocrit 39.9 % (37.0-47.0); Hemoglobin 12.7 g/dL (12.0-15.0); Immature Granulocyte Absolute 0.48 K/mm3 (0.00-0.031); Immature Granulocyte Percent A 4.9 % (0-0.5); Lymphocytes Absolute Auto 1.94 K/mm3 (0.9-3.2); Lymphocytes Percent Auto 19.7 % (18.3-44.2); Mean Corpuscular HGB Conc 31.8 g/dl (32-36); Mean Corpuscular Hemoglobin 26.5 pg (26-34); Mean Corpuscular Volume 83.3 fl (80-100); Mean Platelet Volume 8.6 fl (7.4-10.4); Monocytes Absolute Auto 1.1 K/mm3 (0.1-0.6); Neutrophils Absolute Auto 6.3 K/mm3 (1.3-6.7); Neutrophils Percent Auto 64.1 % (45.5-73.1); Platelet Count Result 400 k/mm3 (150-375); Red Blood Count 4.79 M/mm3 (4.2-5.4); Red Cell Distribution Width 15.7 % (11.5-14.5); White Blood Count 9.8 K/mm3 (4.5-10.0)
--- NOTE | 2021-03-05 09:00 | PC.NURSE ---
Patient repeatedly educated regarding the importance of wearing her BiPAP mask as she is at 100% FiO2. Patient continues to take mask off stating she understands but does not want to wear it. Patient states I want to eat some food and I have to make calls. Patient educated again and I explained that the priority at this time was her oxygen demands and not eating or talking on the phone. I reassured the patient that I have spoken to Dylan, her son in law.
[2021-03-05 09:10] LABS: INR 1.1; Prothrombin Time 13.8 Seconds (11.1-14.7)
[2021-03-05 09:21] LABS: Alanine Aminotransferase 24 U/L (4-35); Albumin Level 3.5 g/dL (3.5-5.1); Alkaline Phosphatase 91 U/L (38-126); Anion Gap 8 mmol/L (8-16); Aspartate Amino Transferase 42 U/L (14-36); Bilirubin,Total 0.5 mg/dL (0.2-1.3); Blood Urea Nitrogen 34 mg/dL (7-17); CRP 1.4 mg/dL (<1.0); Calcium 9.1 mg/dL (8.4-10.2); Carbon Dioxide 34 mmol/L (22-30); Chloride 102 mmol/L (98-107); Estimated CRCL calculation 76 ml/min; Estimated Glomerular Filt Rate > 60; Glucose 117 mg/dL (65-110); Potassium 3.9 mmol/L (3.4-5.0); Sodium 144 mmol/L (137-145)
[2021-03-05] MEDS: REMDESIVIR 100 MG/NS 250 ML 100 MG/250 ML BAG 250 MG IVPB (10:10)
--- NOTE | 2021-03-05 10:30 | PC.NURSE ---
Patient has refused to wear the BiPAP at this time. I changed her to the Airvo and non-rebreather mask and educated her once again on what that means if her oxygen saturation levels continue to drop. I explained the demand that would be placed on her heart, brain and other organs if her body's blood oxygen levels continued to decrease.
--- NOTE | 2021-03-05 10:54 | PM.IMPN ---
Progress Note: A&P Assessment and Plan (1) Acute respiratory failure with hypoxia: Code(s): J96.01 - Acute respiratory failure with hypoxia Status: Acute Assessment and Plan: Patietn hypoxic on admission with SpO2 84%. She was started on supplemental O2. CXR on admission showing airspace opacities in the mid and lower lung zones. Echo 03/04 showing EF 60-65% with Grade I diastolic dysfunction. HRCT chest showing diffuse lung disease with a mid and lower lung zone predominance. Continue COVID treatment as below. Prone positioning as toelrated. May need to change to CPAP. Spoke with son-in-law with patient's permission and he was updated. Critical care 40 minutes (2) Pneumonia due to 2019 novel coronavirus: Code(s): U07.1 - COVID-19; J12.82 - Pneumonia due to coronavirus disease 2019 Status: Acute Assessment and Plan: Patient was COVID positive about 7 days prior to admission. She was tested here as well and was positive on 03/01. She completed a course of Azithromycin. She remains on Remdesivir and Decadron (Decadron dose increased to 10mg on 03/04). Baricitinib added 03/03. Last of the 5 day course of the Remdesivir. Will continue Remdesivir for 5 more days. CRP 6 down to 1.4 and LDH down to 1057 but clinically not doing well. Continue supportive care. (3) Essential hypertension: Code(s): I10 - Essential (primary) hypertension Status: Chronic Assessment and Plan: Patient's blood pressure was reviewed on 03/05 Blood pressure remains well controlled. Will continue current medications with lisinopril and Norvasc (4) Asthma: Qualifiers: Asthma complication type: unspecified Asthma persistence: unspecified Asthma severity: unspecified severity Qualified Code(s): J45.909 - Unspecified asthma, uncomplicated Code(s): J45.909 - Unspecified asthma, uncomplicated Status: Chronic Assessment and Plan: No wheezing appreciated. Continue neb treatments (5) Chronic GERD: Code(s): K21.9 - Gastro-esophageal reflux disease without esophagitis Status: Chronic Assessment and Plan: Stable. Continue IV Protonix (6) DVT prophylaxis: Onset Date: ~02/2021 Code(s): Z29.9 - Encounter for prophylactic measures, unspecified Status: Acute Assessment and Plan: Chemo Subjective Date/time seen: 03/05/21 10:54 Interval history: 60yo female with asthma and HTN here for shortness of breath. She tested positive for COVID about 1 week prior to admission. Assuming care. Chart reviewed. Now requiring AirVo with NRB mask. She is AOx4 and clearly states that she does not want to be intubated and refuses CPR. We spoke about how this could worse to the point that she could . She adamantly adheres to her desire not to be intubated or have CPR. Per RN, patient does not make decisions by herself so I spoke with her by phone. He is also at [facility] for COVID PNA as well. He states that he is in full agreement with his 's wishes to be DNR/DNI. Cough mostly nonproductive. She is SOB. Exam Narrative: AF 98.2 137/87 90 28 85% AirVo and NRB mask Gen - tachypneic Chest - inspiratory crackles bibasilar, increased RR CV - RRR S1/S2; Tele showing hypoxia alarms Abd - Soft, NT/ND, Positive BS Ext - No pedal edema Neuro - Alert and oriented x4. Skin - cool and dry Objective Data Vital Signs Vital Signs: Vital Signs - 24 hr 03/04/21 11:39 03/04/21 12:00 03/04/21 14:00 Temperature 98 F Pulse Rate 90 96 114 H Respiratory Rate 29 H Blood Pressure 124/82 Pulse Oximetry 93 03/04/21 14:33 03/04/21 14:41 03/04/21 14:50 Temperature Pulse Rate 86 86 102 H Respiratory Rate 20 20 Blood Pressure Pulse Oximetry 92 03/04/21 15:54 03/04/21 16:00 03/04/21 18:00 Temperature 97.9 F Pulse Rate 104 H 96 102 H Respiratory Rate 30 H Blood Pressure 134/79 Pulse Oximetry 91
[2021-03-05 11:03] LABS: Platelet Estimate Adequate (Adequate)
[2021-03-05 11:04] LABS: Hypochromasia 1+ (NORMAL)
[2021-03-05 11:06] LABS: Anisocytosis 1+ (NORMAL)
--- NOTE | 2021-03-05 12:30 | PC.NURSE ---
Explained to patient that we are going to bring her over so they may be in the same room together. I spoke extensively with the patient regarding code status as did Dr. Guadalupe. The patient wishes to be DNR. She is adamant about not being intubated and she does not want CPR.
--- NOTE | 2021-03-05 14:30 | PC.NURSE ---
Patient and her spouse moved into room 206 together after having a discussion and have decided to remain DNR. The patient understands what this means and when asked to tell me what it means to her she responded It means I am gonna from COVID. But I'm gonna either way and I do not want to be intubated. The patients is present for conversation and he agrees with her decision to remain DNR status.
--- NOTE | 2021-03-05 15:21 | PC.NURSE ---
Patient offered Morphine for pain and moaning/air hunger. Patient refused Morphine. Patient is alert and oriented.
[2021-03-05] MEDS: MORPHINE SULFATE (*CRX) 2 MG/ML INJ IV PUSH ×2 (15:30→20:02)
[2021-03-05] MEDS: CYCLOBENZAPRINE HCL 10 MG TABLET PO (21:08)
[2021-03-06] VITALS (16 sets, daily range): BP systolic 107–123; BP diastolic 60–95; PULSE 71–134; RESP 24–32; TEMP 36.2–37.2; O2SAT 5–88
[2021-03-06] MEDS: LORazepam INJ (*CRX) 2 MG/ML VIAL 0.5 MG IV PUSH ×2 (03:01→08:43)
--- NOTE | 2021-03-06 03:18 | PC.NURSE ---
patient continually removes all oxygen. patient is confused and has removed gown, pulse-ox etc. it took a little bit to get her back in bed and pulled up enough that she can sit up. that is with oxygen applied. patient o2 sat dropped into the 50's this time with removal of all o2. patient is now hanging in the mid to upper 70's on airvo and non-rebreather. taking a long time to recover. patient is given medication to relax her so she is not so anxious. is at bedside (in bed next to her) and is aware of patients condition. dr langford is aware of patients current condition.
[2021-03-06] MEDS: ALBUTEROL SULFATE NEB 2.5 MG/3 ML INH 1.25 MG INHALATION ×2 (03:29→10:05)
[2021-03-06] MEDS: IPRATROPIUM BR 0.02% INH SOLN 0.5 MG/2.5 ML VIAL 1 MG INHALATION ×2 (03:29→10:05)
[2021-03-06 05:12] LABS: Hematocrit 38.2 % (37.0-47.0); Hemoglobin 11.9 g/dL (12.0-15.0); Mean Corpuscular HGB Conc 31.2 g/dl (32-36); Mean Corpuscular Volume 83.6 fl (80-100); Mean Platelet Volume 8.8 fl (7.4-10.4); Platelet Count Result 416 k/mm3 (150-375); Red Blood Count 4.57 M/mm3 (4.2-5.4); Red Cell Distribution Width 15.6 % (11.5-14.5); White Blood Count 10.6 K/mm3 (4.5-10.0)
[2021-03-06 05:24] LABS: INR 1.1; Prothrombin Time 13.9 Seconds (11.1-14.7)
[2021-03-06 05:32] LABS: Alanine Aminotransferase 22 U/L (4-35); Albumin Level 3.2 g/dL (3.5-5.1); Alkaline Phosphatase 80 U/L (38-126); Anion Gap 8 mmol/L (8-16); Aspartate Amino Transferase 35 U/L (14-36); Bilirubin,Total 0.5 mg/dL (0.2-1.3); Blood Urea Nitrogen 34 mg/dL (7-17); CRP 1.3 mg/dL (<1.0); Calcium 8.6 mg/dL (8.4-10.2); Carbon Dioxide 33 mmol/L (22-30); Chloride 101 mmol/L (98-107); Estimated CRCL calculation 67 ml/min; Estimated Glomerular Filt Rate > 60; Glucose 111 mg/dL (65-110); Lactate Dehydrogenase 1088 U/L (313-618); Sodium 142 mmol/L (137-145)
[2021-03-06] MEDS: MORPHINE SULFATE (*CRX) 2 MG/ML INJ IV PUSH ×4 (06:17→22:06)
[2021-03-06] MEDS: BARICITINIB 2 MG TABLET 4 MG BY MOUTH (08:53)
[2021-03-06] MEDS: ENOXAPARIN 40 MG/0.4 ML SYRINGE SUB-Q (08:53)
[2021-03-06] MEDS: MONTELUKAST SODIUM 10 MG TABLET PO (08:55)
[2021-03-06] MEDS: PANTOPRAZOLE SODIUM IV 40 MG VIAL IV PUSH (08:55)
[2021-03-06 09:02] LABS: Basophils Percent Auto 0.4 % (0.2-1.2); Hematocrit 38.6 % (37.0-47.0); Hemoglobin 11.9 g/dL (12.0-15.0); Immature Granulocyte Percent A 4.7 % (0-0.5); Lymphocytes Absolute Auto 1.73 K/mm3 (0.9-3.2); Lymphocytes Percent Auto 16.3 % (18.3-44.2); Mean Corpuscular HGB Conc 30.8 g/dl (32-36); Mean Corpuscular Hemoglobin 25.9 pg (26-34); Mean Corpuscular Volume 84.1 fl (80-100); Mean Platelet Volume 9.1 fl (7.4-10.4); Monocytes Absolute Auto 1.1 K/mm3 (0.1-0.6); Monocytes Percent Auto 10.1 % (2.6-8.5); Neutrophils Absolute Auto 7.3 K/mm3 (1.3-6.7); Neutrophils Percent Auto 68.5 % (45.5-73.1); Platelet Count Result 427 k/mm3 (150-375); Red Blood Count 4.59 M/mm3 (4.2-5.4); Red Cell Distribution Width 15.8 % (11.5-14.5); White Blood Count 10.6 K/mm3 (4.5-10.0)
--- NOTE | 2021-03-06 10:51 | PM.IMPN ---
Progress Note: A&P Assessment and Plan (1) Acute respiratory failure with hypoxia: Code(s): J96.01 - Acute respiratory failure with hypoxia Status: Acute Assessment and Plan: Patietn hypoxic on admission with SpO2 84%. She was started on supplemental O2. CXR on admission showing airspace opacities in the mid and lower lung zones. Echo 03/04 showing EF 60-65% with Grade I diastolic dysfunction. HRCT chest showing diffuse lung disease with a mid and lower lung zone predominance. Continue COVID treatment as detailed below. Prone positioning as she tolerates. Patient remains a DNR. Comfort measures if her condition deteriorates to terminal condition. aware. (2) Pneumonia due to 2019 novel coronavirus: Code(s): U07.1 - COVID-19; J12.82 - Pneumonia due to coronavirus disease 2019 Status: Acute Assessment and Plan: Patient was COVID positive about 7 days prior to admission. She was tested here as well and was positive on 03/01. She completed a course of Azithromycin. She remains on Remdesivir and Decadron (Decadron dose increased to 10mg on 03/04). Baricitinib added 03/03. Completed a 5 day course of the Remdesivir but this was continued for 5 more days. CRP 6 down to 1.3 but LDH up to 1088 but clinically not doing well. Continue supportive care. (3) Essential hypertension: Code(s): I10 - Essential (primary) hypertension Status: Chronic Assessment and Plan: Patient's blood pressure was reviewed on 03/06 Blood pressure remains too well controlled. Will adjust current medications (4) Asthma: Qualifiers: Asthma complication type: unspecified Asthma persistence: unspecified Asthma severity: unspecified severity Qualified Code(s): J45.909 - Unspecified asthma, uncomplicated Code(s): J45.909 - Unspecified asthma, uncomplicated Status: Chronic Assessment and Plan: As above. Continue neb treatments (5) Chronic GERD: Code(s): K21.9 - Gastro-esophageal reflux disease without esophagitis Status: Chronic Assessment and Plan: Stable. Continue IV Protonix (6) DVT prophylaxis: Onset Date: ~02/2021 Code(s): Z29.9 - Encounter for prophylactic measures, unspecified Status: Acute Assessment and Plan: Lovenox Subjective Date/time seen: 03/06/21 10:51 Interval history: 60yo female with asthma and HTN here for shortness of breath. She tested positive for COVID about 1 week prior to admission. Patient and were placed in the same room and they have both decided to continue with DNR status. She remains hypoxic so changed to BiPAP today. She arouses but has mumbled speech and thhus unable to provide history. wsa updated. Review of Systems Review of Systems: ROS unobtainable: Yes unobtainable due to mental status Exam Narrative: AF 97.9 107/70 85 26 82% BiPAP Gen - tachypneic, bipap in place HEENT - slightly cyanotic lips Chest - distant, coarse BS CV - RRR S1/S2; Tele showing alarms for hypoxia Abd - Soft, obese, +BS Ext - No pedal edema Neuro - obtunded Skin - cool and dry Objective Data Vital Signs Vital Signs: Vital Signs - 24 hr 03/05/21 12:00 03/05/21 14:00 03/05/21 14:51 Temperature 98.7 F Pulse Rate 100 105 H 96 Respiratory Rate 36 H 26 H Blood Pressure 131/83 Pulse Oximetry 87 L 03/05/21 16:00 03/05/21 18:00 03/05/21 20:00 Temperature 98.2 F 97.7 F Pulse Rate 102 H 101 H 102 H Respiratory Rate 34 H 22 H Blood Pressure 126/85 142/86 H Pulse Oximetry 86 L 85 L 03/05/21 22:00 03/05/21 22:29 03/05/21 22:30 Temperature Pulse Rate 84 74 99 Respiratory Rate 28 H Blood Pressure Pulse Oximetry 86 L 03/06/21 00:00 03/06/21 02:00 03/06/21 03:30 Temperature 97.5 F L Pulse Rate 77 71 98 Respiratory Rate 24 H 32 H Blood Pressure 117/95 H Pulse Oximetry 83 L 03/06/21 03:49 03/06/21 03:51 03/06/21 04:00 Tem
[2021-03-06] MEDS: REMDESIVIR 100 MG/NS 250 ML 100 MG/250 ML BAG 250 MG IVPB (10:56)
[2021-03-06] MEDS: LORazepam INJ (*CRX) 2 MG/ML VIAL 1 MG IV PUSH (12:30)
[2021-03-06] MEDS: MORPHINE SULFATE INJ (*CRX) 50 MG in SODIUM CHLORIDE 0.9% IV 95 ML IV CONT (12:34)
[2021-03-06] MEDS: LORazepam INJ (*CRX) 2 MG/ML VIAL IV PUSH ×5 (15:30→23:07)
[2021-03-06] MEDS: MORPHINE SULFATE INJ (*CRX) 50 MG in SODIUM CHLORIDE 0.9% IV 95 ML 16 MG IV CONT (19:15)
[2021-03-07] MEDS: LORazepam INJ (*CRX) 2 MG/ML VIAL IV PUSH ×9 (00:22→15:59)
[2021-03-07] MEDS: MORPHINE SULFATE (*CRX) 2 MG/ML INJ IV PUSH ×4 (00:23→08:24)
[2021-03-07] MEDS: MORPHINE SULFATE INJ (*CRX) 50 MG in SODIUM CHLORIDE 0.9% IV 95 ML 16 MG IV CONT (00:24)
[2021-03-07] MEDS: fentaNYL CITRATE INJ (*CRX) 100 MCG/2 ML VIAL 75 MCG IV PUSH (04:29)
[2021-03-07] MEDS: MORPHINE SULFATE INJ (*CRX) 50 MG in SODIUM CHLORIDE 0.9% IV 95 ML 32 MG IV CONT (04:30)
[2021-03-07] MEDS: MORPHINE SULFATE INJ (*CRX) 50 MG in SODIUM CHLORIDE 0.9% IV 95 ML 40 MG IV CONT ×3 (08:24→15:59)
--- NOTE | 2021-03-07 11:10 | PM.IMPN ---
Progress Note: A&P Assessment and Plan (1) Acute respiratory failure with hypoxia: Code(s): J96.01 - Acute respiratory failure with hypoxia Status: Acute (2) Pneumonia due to 2019 novel coronavirus: Code(s): U07.1 - COVID-19; J12.82 - Pneumonia due to coronavirus disease 2019 Status: Acute (3) Essential hypertension: Code(s): I10 - Essential (primary) hypertension Status: Chronic (4) Asthma: Qualifiers: Asthma complication type: unspecified Asthma persistence: unspecified Asthma severity: unspecified severity Qualified Code(s): J45.909 - Unspecified asthma, uncomplicated Code(s): J45.909 - Unspecified asthma, uncomplicated Status: Chronic (5) Chronic GERD: Code(s): K21.9 - Gastro-esophageal reflux disease without esophagitis Status: Chronic (6) DVT prophylaxis: Onset Date: ~02/2021 Code(s): Z29.9 - Encounter for prophylactic measures, unspecified Status: Acute Additional Plan Patient currently on comfort measures. She remains on a morphine drip. She is severely hypoxic. Continue comfort measures. is aware that patient is terminal. Subjective Date/time seen: 03/07/21 11:10 Interval history: 60yo female with asthma and HTN here for shortness of breath. She tested positive for COVID about 1 week prior to admission. Patient's condition worsened. continued to confirm DNR status for his . She developed air hunger and terminal restlessness. She was started on IV Morphine drip for comfort. request O2 to be removed which was done. Patient unresponsive. in room was updated. Review of Systems Review of Systems: ROS unobtainable: Yes unobtainable due to mental status Exam Narrative: AF 98.9 123/76 115 26 Gen - tachypneic Chest - distant, coarse BS CV - RRR S1/S2 Abd - Soft, obese Ext - No pedal edema Neuro - obtunded Skin - cyanotic Objective Data Vital Signs Vital Signs: Vital Signs - 24 hr 03/06/21 11:43 03/06/21 12:00 03/06/21 14:00 Temperature 98.9 F Pulse Rate 92 92 134 H Respiratory Rate 26 H Blood Pressure 123/76 Pulse Oximetry 88 L 88 L 03/06/21 16:00 03/06/21 18:00 03/06/21 20:00 Temperature Pulse Rate 117 H 115 H Respiratory Rate Blood Pressure Pulse Oximetry 28 L 5 L Intake/Output Intake/Output: Intake & Output 03/04/21 03/05/21 03/06/21 03/07/21 23:59 23:59 23:59 23:59 Intake Total 1850 890 200 300 Output Total 2150 1400 1000 50 Balance -300 -510 -800 250 Meds/Results Medications: Active Medications Generic Name Dose Route Start Last Admin Trade Name Freq PRN Reason Stop Dose Admin Acetaminophen 650 mg 03/03/21 20:10 03/03/21 20:47 Acetaminophen 325 Mg Tablet PO 650 mg Q4H PRN Administration Mild Pain (1-3) or Fever Albuterol 1.25 mg 03/01/21 20:00 03/06/21 16:33 Albuterol Sulfate Neb 2.5 Mg/3 Ml Inh INHALATION Not Given Q6HRT JOSIAH Amlodipine Besylate 5 mg 03/02/21 09:00 03/06/21 10:29 Amlodipine Besylate 5 Mg Tablet PO Not Given DAILY JOSIAH Baricitinib 4 mg 03/03/21 15:00 03/06/21 08:53 Baricitinib 2 Mg Tablet BY MOUTH 03/16/21 09:01 4 mg DAILY JOSIAH Administration Cyclobenzaprine HCl 10 mg 03/01/21 23:35 03/06/21 20:27 Cyclobenzaprine Hcl 10 Mg Tablet PO Not Given HS JOSIAH Dexamethasone Sodium Phosphate 10 mg 03/04/21 09:00 03/06/21 08:55 Dexamethasone Sod Phos Inj 10 Mg/Ml 1 Ml Vial IV PUSH 03/10/21 09:01 10 mg DAILY JOSIAH Administration Enoxaparin Sodium 40 mg 03/06/21 09:00 03/06/21 08:53 Enoxaparin 40 Mg/0.4 Ml Syringe SUB-Q 40 mg DAILY JOSIAH Administration Hydralazine HCl 10 mg 03/01/21 12:53 Hydralazine Hcl 20 Mg/Ml Vial IV PUSH Q8H PRN Blood Pressure - High Remdesivir 100 mg in 250 mls @ 250 mls/hr 03/06/21 10:00 03/06/21 10:56 IVPB 03/10/21 10:59 250 mls/hr Q24H JOSIAH Administration Morphine Sulf
--- NOTE | 2021-03-07 12:47 | PCDIET ---
Weekly nutritional screen. Patient previously eating well but has since deteriorated with implementation of comfort measures. Consult RD if change in plan occurs and aggressive nutritional therapy is desired.
[2021-03-07] MEDS: MORPHINE SULFATE (*CRX) 2 MG/ML INJ 4 MG IV PUSH (16:40)
--- NOTE | 2021-03-08 06:55 | PM.DDS ---
Discharge Summary Date and Time Date of : 03/07/21 Time of : 17:17 Provider Pronounced By: Miko Wood RN Probable Cause of Probable Cause of : Respiratory failure due to COVID Summary Hospital Course: Patient was COVID positive about 7 days prior to admission. She was tested here as well and was positive on 03/01. Patient was hypoxic on admission with SpO2 84%. She was started on supplemental O2. HRCT chest showing diffuse lung disease with a mid and lower lung zone predominance. She completed a course of Azithromycin. She was treated with Remdesivir, Decadron, and Baricitinib. On my initial evaluation, patient was requiring AirVo with NRB mask. She was AOx4 and clearly stated that she did not want to be intubated and refused CPR. We spoke about how her condition could worsen to the point that she could . She adamantly adheres to her desire not to be intubated or have CPR. I spoke with her by phone (with patient permission) and he agreed and accepted his 's wishes to be DNR/DNI. Patient developed air hunger and terminal restlessness. request O2 to be removed which was done. She was started on IV Morphine drip for comfort. Patient became comfortable and . Additional Data Confirmation of as documented by pronouncing clinician: Pupillary Reflex, Palpable Pulses, Response to Stimuli, Heart Tones and Breath Sounds Family: at bedside Name of Provider Notified: [place] PATINO Time Provider Notified: 18:30 Was code activated?: No Provider Requests Autopsy: No Family Requests Autopsy: No Registered Public Health Nurse Notified: Yes Date [facility] Notified of : 03/07/21 Time [facility] Notified of : 18:06
== END 2021-03-07 17:17 | disposition expired | DRG 177 ==
LOC: ANHED 10:41 → ANH3MEDSUR 16:11 → ANHIMU 03-05 10:26 → ANH3MEDSUR 03-08 12:52 → ANHIMU 03-08 12:52
PROVIDERS: Internal Medicine; Admitting Provider Family Medicine; Emergency Provider Emergency Medicine; PCP Family Medicine; Visit Provider Nurse Practitioner
DX: U07.1 COVID-19 (principal); J96.01 Acute respiratory failure with hypoxia; J12.82 Pneumonia due to coronavirus disease 2019; J44.9 Chronic obstructive pulmonary disease, unspecified; F17.210 Nicotine dependence, cigarettes, uncomplicated; I10 Essential (primary) hypertension; K21.9 Gastro-esophageal reflux disease without esophagitis; J45.909 Unspecified asthma, uncomplicated; Z66 Do not resuscitate
CPT/HCPCS: 36415; 36600; 71045; 71250; 80053; 82565; 82728; 82805; 83605; 83615; 83735; 83880; 84100; 84145; 84439; 84443; 84460; 84480; 84484; 85025; 85027; 85380; 85610; 85730; 86140; 87040; 93005; 93306; 94002; 94003; 94640; 94660; 99285; A9270; C9113; C9803; J1100; J1650; J1940; J2060; J2270; J3010; U0003; U0005